=== PATIENT | female | born 1970 | race African-American/Black ===

== ENCOUNTER 2024-10-20 11:58 | Observation (INO) ==
--- NOTE | 2024-10-20 12:14 | Emergency Department Note ---
HPI - Seizure General Chief Complaint: Seizure Stated Complaint: POSSIBLE SEIZURE Time Seen by Provider: 10/20/24 12:00 Source: patient Mode of arrival: ambulance Limitations: no limitations History of Present Illness HPI Narrative: This is a 53 year old female patient that presents to the ER with c/o per EMS patient has had multiple seizures today. patient has a hx of seizures and just started Keppra 2 weeks ago. Patient is post ictal in the ER. Patient denies any chest pain, SOB, abdominal pain, numbness, tingling, weakness or N/V. Patient has a back brace on for hx of lumbar fx Associated symptoms: Reports denies other symptoms Treatments prior to arrival: Reports other (keppra 500mg) Related Data Allergies Allergy/AdvReac Type Severity Reaction Status Date / Time ondansetron (From Zofran) Allergy Verified 10/20/24 12:09 Review of Systems 2 Status of ROS 10 or more systems reviewed and unremark able except as noted in history and below Constitutional Denies: fever, chills, change in weight, fatigue, malaise or night sweats Eyes Denies: change in vision, blurry vision, blind spots, light sensitivity, eye discomfort, eye discharge or dry eyes Ears, nose, mouth, and throat Denies: throat pain, neck pain, throat swelling, difficulty swallowing, hoarseness or mouth pain Cardiovascular Denies: chest pain, palpitations, edema, swelling of feet/ankles, lightheadedness or shortness of breath with exertion Respiratory Denies: shortness of breath, cough, wheezing, stridor, pain on inspiration or change in phlegm color Gastrointestinal Denies: abdominal pain, nausea, vomiting or coffee grounds in vomit Genitourinary Denies: painful urination, urinary frequency, urinary urgency, urinary incontinence or blood in urine Musculoskeletal Denies: back pain, neck pain, extremity pain, extremity swelling or joint pain Integumentary/Breast Denies: rash, itching, redness, skin pain, skin tenderness, skin swelling or sores Neurological Reports: seizure-like activity; Denies: headache, numbness in extremities, weakness in extremities, lack of coordination, dizziness, vertigo, confusion or behavioral changes Psychiatric Denies: anxiety, mood swings, panic attacks, change in sleep pattern or hopelessness Endocrine Denies: excessive urination, excessive thirst, fatigue, cold intolerance or excessive sweating Hematologic/Lymphatic Denies: easy bruising, easy bleeding, enlarged lymph nodes or other Allergic/Immunologic Denies: hives, throat swelling, tongue swelling or facial swelling [facility] Medical History (Updated 10/20/24 @ 12:11 by Aliyah Qureshi RN) Seizure Lupus RA (rheumatoid arthritis) Social History Smoking status: never smoker Within the past year, how often did you have a drink containing alcohol: 4 or more times a week Within the past year, how many standard drinks containing alcohol did you have on a typical day: 5 or 6 Within the past year, how often did you have six or more drinks on one occasion: daily or almost daily Total score: 8 Score interpretation: A score of 3 or more indicates drinking is likely to affect patient's safety. Feel stressed/tense/nervous/anxious/difficulty sleeping: rather much Life stressors: other Life stressor details: 1 Due to disability, difficulty making decisions: No Exam Constitutional: normal general appearance, no apparent distress and average body habitus Vital Signs - 24 hr 10/20/24 11:58 Temperature 97.9 F Pulse Rate 86 Respiratory Rate 16 Blood Pressure 129/78 Pulse Oximetry 100 Oxygen Delivery Me thod Room Air HENMT: normocephalic, head/scalp atraumatic, hearing grossly normal bilaterally, external ears normal, EACs normal, nasal mucous membranes normal, external nose normal, oral mucous membranes normal and oropharynx normal Eyes: PERRL, EOMs intact bilaterally and conjunctivae normal Neck/C-Spine: visual inspection normal and trachea midline Lymph: no lymphadenopathy noted Chest: inspection of chest normal Respiratory: breath sounds equal bilaterally, normal respiratory effort, clear to auscultation bilaterally, no wheezes, no rales, no retractions, no use of accessory muscles and chest percussion normal Cardiovascular: normal heart rate noted, regular rhythm noted, no gallop, no rub, no murmur, no JVD, no clicks, peripheral pulses 2+ throughout, no bruits noted and no additional abnormal heart sounds Gastrointestinal: abdomen normal to inspection, abdomen soft to palpation, nontender to palpation, nontender to percussion, nondistended, normoactive bowel sounds, no hepatosplenomegaly, no masses, no pulsatile mass, no ascites and no hernia Genitourinary: no CVA tenderness Back/Pelvis: spine normal to inspection back brace in place Extremities: normal to inspection, normal to palpation, no tenderness, full ROM, no joint enlargement and no deformity 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: 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, no movement abnormality noted, no focal motor deficit noted, no sensory deficits noted, speech abnormality noted (slurred slightly but normal for patient hx of CVA, post ictal), coordination normal, no pronator drift noted, no fasciculations noted and GCS normal post ictal positive Psychiatry: mental status grossly normal, oriented x3, thought process normal, cooperative and affect normal Skin: skin color normal Course Course Hospital Course: 1249: spoke to Dr Fox (neurology) he reviewed labs and imaging and states to get a UA and cxr, give her Keppra 1gm IV now and then increase her Keppra to 1gm po BID. Patient states she is feeling better 1352: spoke to Dr Yuen reviewed patient with her and she accepted patient to the medical floor, patient speech normal for patient, patient states she is feeling better Vital Signs Vital signs: Vital Signs Temperature 97.9 F 10/20/24 11:58 Pulse Rate 86 10/20/24 11:58 Respiratory Rate 16 10/20/24 11:58 Blood Pressure 129/78 10/20/24 11:58 Pulse Oximetry 100 10/20/24 11:58 Oxygen Delivery Method Room Air 10/20/24 11:58 Temperature 97.9 F 10/20/24 11:58 Pulse Rate 86 10/20/24 11:58 Respiratory Rate 16 10/20/24 11:58 Blood Pressure 129/78 10/20/24 11:58 Pulse Oximetry 100 10/20/24 11:58 Oxygen Delivery Method Room Air 10/20/24 11:58 MDM - Seizure Differential Diagnosis Differential diagnosis: Likely intractable seizure disorder Medical Records Attestation: I reviewed the patient's medical records. Lab Data Attestation: I reviewed the patient's lab results. Labs: Lab Results 10/20/24 10/20/24 Range/Units 12:45 13:10 WBC 3.7 L (4.3-9.3) K/uL RBC 4.4 (4.00-5.50) M/uL Hgb 12.3 L (12.5-15.8) gm/dL Hct 37.8 (35.9-46.7) % MCV 86.9 (81.0-93.7) fl MCH 28.4 (27.6-32.2) pg MCHC 32.7 L (33.1-35.3) g/dl RDW 14.3 H (11.4-14.2) % Plt Count 208 (152-353) K/uL MPV 8.1 (6.9-10.8) fl Gran % 63.6 (47.8-71.3) % Lymph % (Auto) 23.7 (20.0-43.0) % [place] % (Auto) 10.7 H (3.6-9.8) % Eos % (Auto) 0.9 (0.4-2.8) % Baso % (Auto) 1.1 H (0.1-0.85) Lymph # (Auto) 0.9 L (1.1-3.1) [place] # (Auto) 0.4 L (1.1-3.1) Eos # (Auto) 0.0 (0.0-0.2) Baso # (Auto) 0.0 (0.0-0.1) Absolute Gran (auto) 2.3 (2.3-6.0) Sodium 139 (136-145) mmol/L Potassium 3.7 (3.6-5.2) mmol/L Chloride 103.0 (98-107) mmol/L Carbon Dioxide 26 (21-32) mmol/L Anion Gap 10.0 (4-14) mEq/L BUN 18 (7-18) mg/dL Creatinine 1.0 (0.6-1.3) mg/dL Estimated GFR 67.0 (>59.9) Glucose 133 H (70-110) mg/dL Calcium 9.1 (8.5-10.1) mg/dL Total Bilirubin 0.26 (0.0-1.0) mg/dL AST 16 (15-37) U/L ALT 37 (30-65) U/L Alkaline Phosphatase 95 (50-136) U/L Troponin I High Sens 9.50 (4.0-60.4) ng/L Total Protein 7.5 (6.4-8.2) g/dL Albumin 3.6 (3.4-5.0) g/dL Urine Color Yellow (STRAW/YELL.) Urine Appearance Clear (CLEAR) Ur Specific [place] 1.010 (1.001-1.035) Urine Protein Negative (NEGATIVE) Urine Glucose (UA) Normal (NORMAL) Urine Ketones Negative (NEGATIVE) Urine Occult Blood Negative (NEG - TRACE) Urine Nitrite Negative (NEGATIVE) Urine Bilirubin Negative (NEGATIVE) Urine Urobilinogen Normal (NORMAL) Ur Leukocyte Esterase Negative (NEGATIVE) Fluid pH 6.5 (5 - 9) Imaging Data Imaging ordered: CT scan - head Attestation: I have reviewed the pertinent imaging results. ECG Data Attestation: I have reviewed the pertinent ECG results. Discharge Plan Discharge Patient Disposition: Admitted As Observation Condition: Stable Chief Complaint: Seizure Clinical Impression: Status epilepticus Print Language: Norwegian Referrals: Radha Yuen DO [Primary Care Provider] - Time of Disposition: 13:54
[2024-10-20] MEDS ORDERED: levETIRAcetam 500 MG/5 ML VIAL ONE (12:52)
[2024-10-20] MEDS ORDERED: 0.9 % SODIUM CHLORIDE 100ML 100 ML IV ONE (12:52)
[2024-10-20 12:53] LABS: Basophils%(Percent) Auto 1.1 (0.1-0.85); Eosinophils%(Percent) Auto 0.9 % (0.4-2.8); Granulocytes % - Auto 63.6 % (47.8-71.3); Granulocytes#(Absolute)- Auto 2.3 (2.3-6.0); Hematocrit 37.8 % (35.9-46.7); Mean Corpuscular Volume 86.9 fl (81.0-93.7); Monocytes #(Absolute)- Auto 0.4 (1.1-3.1); Monocytes %(Percent)- Auto 10.7 % (3.6-9.8); Platelet Count 208 K/uL (152-353); White Blood Count 3.7 K/uL (4.3-9.3)
[2024-10-20] MEDS: LEVETIRACETAM IV ONE (12:53)
[2024-10-20] MEDS: SODIUM CHLORIDE 0.9% IV ONE (12:53)
[2024-10-20 13:02] LABS: Potassium 3.7 mmol/L (3.6-5.2)
[2024-10-20 13:22] LABS: PH BODY FLUID EXCP BLOOD 6.5 (5 - 9); Urine Appearance CLEAR (CLEAR); Urine Blood NEGATIVE (NEG - TRACE); Urine Color YELLOW (STRAW/YELL.); Urine Urobilinogen Normal (NORMAL)
[2024-10-20] MEDS ORDERED: ONDANSETRON HCL/PF 4 MG/2 ML VIAL INJ PRN (15:30)
[2024-10-20] MEDS ORDERED: DOCUSATE SODIUM 100 MG CAPSULE PO PRN (15:30)
--- NOTE | 2024-10-20 16:16 | History & Physical Report ---
H&P: HPI History of Present Illness Chief complaint: STATUS ELIPIOTICUS Narrative: This is a 53 year old female patient that presents to the ER with c/o per EMS patient has had multiple 4 seizures today. Patient has a hx of seizures and just started Keppra 2 weeks ago. Patient is post ictal in the ER, somulent and slow to talk and sats improved and heart rate decreased as well while in the ER. Patient denies any chest pain, SOB, abdominal pain, numbness, tingling, weakness or N/V. Patient has a back brace on for hx of lumbar fx and chronic pain and lupus and depression Review of Systems Status of ROS 10 or more systems reviewed and unremark able except as noted in history and below Constitutional Reports: fatigue, malaise and change in sleep pattern; Denies: fever, chills, change in weight or night sweats Eyes Denies: change in vision, blurry vision, blind spots, light sensitivity, eye discomfort, eye discharge, dry eyes or increased production of tears Ears, nose, mouth, and throat Denies: throat pain, neck pain, throat swelling, difficulty swallowing, hoarseness, mouth pain, swelling of lips/tongue, dry mouth, bad breath, ear discharge, change in hearing or vertigo Cardiovascular Denies: chest pain, palpitations, edema, swelling of feet/ankles, lightheadedness, shortness of breath with exertion, shortness of breath when lying down or leg pain with exertion Respiratory Denies: shortness of breath, cough, wheezing, stridor, pain on inspiration, change in phlegm color or coughing up blood Gastrointestinal Denies: abdominal pain, nausea, vomiting, coffee grounds in vomit, heartburn, diarrhea, constipation, bloating, belching or difficulty swallowing Genitourinary Denies: painful urination, urinary frequency, urinary urgency, urinary incontinence, blood in urine, difficulty voiding, decreased urine ouput, pelvic pain, genital itching, vaginal dryness or vaginal odor Musculoskeletal Reports: back pain, neck pain, extremity pain, extremity swelling, joint pain, limited range of motion and muscle weakness; Denies: joint swelling, muscle cramps or loss of height Integumentary/Breast Denies: rash, itching, redness, skin pain, skin tenderness , skin swelling, sores, new lesion, changing lesion, non-healing lesion, changes in skin color, jaundice, stretch lopez or breast skin changes Neurological Reports: seizure-like activity; Denies: headache, numbness in extremities, weakness in extremities, lack of coordination, dizziness, vertigo, confusion or behavioral changes Psychiatric Reports: anxiety, change in sleep pattern, loss of interest, irritability and difficulty concentrating; Denies: mood swings, panic attacks, hopelessness, paranoia, memory loss, visual hallucinations, auditory hallucinations, tactile hallucinations, suicidal ideation or homicidal ideation Endocrine Denies: excessive urination, excessive thirst, fatigue, cold intolerance, excessive sweating, flushing, heat intolerance or deepening of the voice Hematologic/Lymphatic Denies: easy bruising, easy bleeding, enlarged lymph nodes or other Allergic/Immunologic Denies: hives, throat swelling, tongue swelling, facial swelling, wheezing, itchy eyes, seasonal allergies or food intolerance [facility] Medical History (Updated 10/21/24 @ 11:52 by Radha Yuen DO) Leukopenia Chronic pain GERD with esophagitis Anemia History of alcohol abuse History of cocaine use History of marijuana use Kidney stones Cerebral vascular accident Seizure Lupus RA (rheumatoid arthritis) Social History Smoking status: never smoker Within the past year, how often did you have a drink containing alcohol: 4 or more times a week Within the past year, how many standard drinks containing alcohol did you have on a typical day: 5 or 6 Within the past year, how often did you have six or more drinks on one occasion: daily or almost daily Total score: 8 Score interpretation: A score of 3 or more indicates drinking is likely to affect patient's safety. Problems where you live: no known problems Highest level of school completed/degree received: high school Feel stressed/tense/nervous/anxious/difficulty sleeping: rather much Life stressors: other Life stressor details: 1 Due to disability, difficulty making decisions: No Meds Home Medications and Allergies Allergies Allergy/AdvReac Type Severity Reaction Status Date / Time ondansetron (From Zofran) Allergy Verified 10/20/24 12:09 Exam Constitutional: abnormal general appearance (disheveled) and (chronically i ll), no apparent distress, abnormal body habitus (overweight) and limitations noted (altered mental status) and (physical limitations) Vital Signs - 24 hr 10/20/24 11:58 10/20/24 12:30 10/20/24 13:00 Temperature 97.9 F Pulse Rate 86 86 81 Pulse Rate [Right Brachial] Respiratory Rate 16 17 20 Blood Pressure 129/78 139/85 145/90 Blood Pressure [Le ft Arm] Pulse Oximetry 100 99 97 Oxygen Delivery Me thod Room Air Room Air Room Air 10/20/24 13:30 10/20/24 14:00 10/20/24 14:30 Temperature Pulse Rate 79 78 84 Pulse Rate [Right Brachial] Respiratory Rate 20 16 16 Blood Pressure 144/84 138/80 159/91 Blood Pressure [Le ft Arm] Pulse Oximetry 98 98 98 Oxygen Delivery Me thod Room Air Room Air Room Air 10/20/24 15:00 10/20/24 15:22 10/20/24 15:30 Temperature 97.9 F 97.5 F L Pulse Rate 78 78 Pulse Rate [Right Brachial] 87 Respiratory Rate 18 18 19 Blood Pressure 142/82 142/82 Blood Pressure [Le ft Arm] 152/88 Pulse Oximetry 99 99 97 Oxygen Delivery Tn thod Room Air Room Air HENMT: normocephalic, head/scalp atraumatic, hearing grossly normal bilaterally, external ears normal, EACs normal, TMs abnormal, nasal mucous membranes normal, external nose normal, oral mucous membranes abnormal, oropharynx normal and dentition abnormal Eyes: PERRL, EOMs intact bilaterally, conjunctivae normal, no scleral icterus, papilledema noted, alignment normal and periorbital findings normal Neck/C-Spine: abnormal to visual inspection, trachea midline, cervical spine nontender, abnormal cervical ROM noted, supple, no meningeal signs, thyroid normal and no carotid bruits Lymph: no lymphadenopathy noted and no lymphedema noted Chest: inspection of chest normal, palpation of chest normal, inspection of breasts normal and palpation of breasts normal Respiratory: breath sounds unequal (diminished bilateral bases), normal respiratory effort, clear to auscultation bilaterally, no wheezes, no rales, no retractions, no use of accessory muscles and chest percussion normal Cardiovascular: normal heart rate noted, regular rhythm noted, no gallop, no rub, no murmur, no JVD, no clicks, peripheral pulses 2+ throughout, no bruits noted and no additional abnormal heart sounds Gastrointestinal: abdomen normal to inspection, abdomen soft to palpation, nontender to palpation, nontender to percussion, nondistended, normoactive bowel sounds, no hepatosplenomegaly, no masses, no pulsatile mass, no ascites and no hernia Genitourinary: no CVA tenderness, bladder normal to palpation and external appearance normal Back/Pelvis: spine abnormal to inspection, thoracic spine tenderness noted, lumbar spine tenderness noted, thoracic spine ROM abnormal, lumbar spine ROM abnormal, paraspinal muscle tenderness noted and straight leg raise abnormal back brace in place Extremities: normal to inspection, normal to palpation, no tenderness, full ROM, no joint enlargement and no deformity 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, no movement abnormality noted, no focal motor deficit noted, sensory deficit noted, deep tendon reflexes 2+ bilaterally, gait abnormality noted, speech abnormality noted (slurred slightly but normal for pat ient hx of CVA, post ictal), coordination normal, no pronator drift noted, no fasciculations noted and GCS normal post ictal positive Psychiatry: Mental Status Exam documented within this Exam's Psych section mental status abnormal (somnolent), oriented x3, thought process abnormality noted, cooperative, affect abnormality noted (labile) and psychomotor abnormality noted (slow) and (disorganized) Feel stressed/tense/nervous/anxious/difficulty sleeping: not at all Skin: skin color abnormal Reports (pale), no rash, no lesions, no ecchymosis noted, no wounds, no lacerations, skin turgor abnormal, no jaundice, no petechiae, no mottling, nails abnormality noted and alopecia noted (wig in place) Reports (general thinning) Assessment and Plan Assessment and Plan (1) Leukopenia: Qualifiers: Leukopenia type: lymphocytopenia Qualified Code(s): D72.810 - Lymphocytopenia Code(s): D72.819 - Decreased white blood cell count, unspecified (2) Postictal confusion: Code(s): F05 - Delirium due to known physiological condition (3) Seizure: Code(s): R56.9 - Unspecified convulsions (4) Lupus: (5) RA (rheumatoid arthritis): Qualifiers: Rheumatoid arthritis location: multiple sites Rheumatoid factor presence: with rheumatoid factor Qualified Code(s): M05.79 - Rheumatoid arthritis with rheumatoid factor of multiple sites without organ or systems involvement Code(s): M06.9 - Rheumatoid arthritis, unspecified (6) Anemia: Qualifiers: Anemia type: other cause Other causes of anemia: other cause, not classified Qualified Code(s): D64.89 - Other specified anemias Code(s): D64.9 - Anemia, unspecified (7) GERD with esophagitis: Qualifiers: Esophagitis bleeding: without hemorrhage Qualified Code(s): K21.00 - G natalie-esophageal reflux disease with esophagitis, without bleeding Code(s): K21.00 - Gastro-esophageal reflux disease with esophagitis, without bleeding (8) Chronic pain: Qualifiers: Chronic pain type: other chronic pain Qualified Code(s): G89.29 - Other chronic pain Code(s): G89.29 - Other chronic pain Plan 0.9% 100 ml per hour neuro checks every 2 hours and prn cardiac and oximetry monitoring anticoagulant therapy protonix therapy pain control with tylenol and morphine and patient home medications Results Labs Labs: CBC 10/20/24 Range/Units 12:45 WBC 3.7 L (4.3-9.3) K/uL RBC 4.4 (4.00-5.50) M/uL Hgb 12.3 L (12.5-15.8) gm/dL Hct 37.8 (35.9-46.7) % Plt Count 208 (152-353) K/uL Gran % 63.6 (47.8-71.3) % Lymph % (Auto) 23.7 (20.0-43.0) % [place] % (Auto) 10.7 H (3.6-9.8) % Eos % (Auto) 0.9 (0.4-2.8) % Baso % (Auto) 1.1 H (0.1-0.85) Lymph # (Auto) 0.9 L (1.1-3.1) [place] # (Auto) 0.4 L (1.1-3.1) Eos # (Auto) 0.0 (0.0-0.2) Baso # (Auto) 0.0 (0.0-0.1) Absolute Gran (auto) 2.3 (2.3-6.0) CMP 10/20/24 12:45 Sodium 139 Potassium 3.7 Chloride 103.0 Carbon Dioxide 26 BUN 18 Creatinine 1.0 Glucose 133 H Calcium 9.1 Liver Function 10/20/24 Range/Units 12:45 Total Bilirubin 0.26 (0.0-1.0) mg/dL AST 16 (15-37) U/L ALT 37 (30-65) U/L Alkaline Phosphatase 95 (50-136) U/L Albumin 3.6 (3.4-5.0) g/dL Urine 10/20/24 13:10 Urine Color Yellow Urine Appearance Clear Ur Specific [place] 1.010 Urine Protein Negative Urine Glucose (UA) Normal Pulse Oximetry Attestation: I have reviewed the pertinent pulse oximetry results. ECG Attestation: I have reviewed the pertinent ECG results. Prior ECG tracings: available for review Imaging Imaging ordered: Chest x-ray and CT scan - head Radiologist's impression: [place] [id number] CT Scan Report Signed Patient: Lexii Rg MR#: [id number] : 1970 Acct:[id number] Age/Sex: 53 / F ADM Date: 10/20/24 Loc: ED Attending Dr: Ordering Physician: Cassandra Morin Date of Service: 10/20/24 Procedure(s): CT head/brain wo con Accession Number(s): [id number] cc: Cassandra Morin; Radha Yuen,DO~ EXAMINATION: CT HEAD/BRAIN WO CON HISTORY: SEIZURE; CV/MB. COMPARISON STUDY: CT brain 08/04/2024 TECHNIQUE: Images were obtained in brain and bone windows. The above CT scan was done with automated exposure control and the mA and kV was adjusted to obtain quality images according to patient size. FINDINGS: There is motion artifact. There is no acute intracranial hemorrhage, midline shift or edema present. There is atrophy and deep white matter ischemic change due to small vessel disease. Gates-white matter differentiation is maintained throughout. There are no intra-axial or extra-axial collections noted. There are old lacunar infarcts in both basal ganglia, thalami and caudate nuclei. Area of encephalomalacia in the right parietal high convexity unchanged.. The sinuses are clear. The mastoid air cells are clear. There is no radiographic evidence of depressed skull fracture. Vascular calcification about the skull base.. IMPRESSION: No acute intracranial process. Atrophy and deep white matter ischemic change due to small vessel disease. No change compared with previous. XR CHEST 1V HISTORY: painpain; UNABLE TO REMOVE ARTIFACT (BRA) DUE TO PATIENT PAIN COMPARISON: Prior study or studies were utilized for comparison during interpretation with the most relevant dated 08/04/2024 TECHNIQUE: XR CHEST 1V FINDINGS: Chest: Lines and tubes: Cardiac leads overlie the chest. Mediastinum: Cardiac and mediastinal shadow is within normal limits for size and contour. Pulmonary vessels: No pulmonary vascular congestion. Lung villagomez: No suspicious airspace opacity. Pleura: No effusion. No pneumothorax. Bones and soft tissues: No acute osseous or soft tissue abnormality. IMPRESSION: 1. No acute cardiopulmonary abnormality
[2024-10-20 16:31] LABS: Amphetamine Screen Urine NEG. (NEGATIVE); Cannabinoid Screen Urine NEG. (NEGATIVE); Cocaine Screen Urine NEG. (NEGATIVE); Methadone Screen Urine NEG. (NEGATIVE); Opiate Screen Urine NEG. (NEGATIVE)
[2024-10-20] MEDS: ACETAMINOPHEN 500 MG TABLET PO PRN (21:01)
[2024-10-20] MEDS: KETOROLAC 30 MG/ML INJ VIAL IVP ONE (22:51)
[2024-10-21 04:04] LABS: Basophils%(Percent) Auto 1.5 (0.1-0.85); Eosinophils%(Percent) Auto 1.1 % (0.4-2.8); Granulocytes % - Auto 48.7 % (47.8-71.3); Granulocytes#(Absolute)- Auto 1.2 (2.3-6.0); Hematocrit 35.1 % (35.9-46.7); Mean Corpuscular Volume 86.4 fl (81.0-93.7); Monocytes #(Absolute)- Auto 0.3 (1.1-3.1); Monocytes %(Percent)- Auto 12.2 % (3.6-9.8); Platelet Count 202 K/uL (152-353); White Blood Count 2.4 K/uL (4.3-9.3)
[2024-10-21 04:12] LABS: Potassium 3.6 mmol/L (3.6-5.2)
[2024-10-21 07:34] VITALS: TEMP 98.4
[2024-10-21] MEDS: levETIRAcetam 500 MG TABLET PO SCH (08:59)
[2024-10-21 12:04] VITALS: BP 152/80; PULSE 80; RESP 19
--- NOTE | 2024-10-21 12:41 | Discharge Summary ---
DS: Providers Provider Date of admission: 10/20/24 13:57 Primary care physician: Radha Yuen DO Admitting clinician: Cassandra Morin Attending physician on admission: Radha Yuen Attending physician on discharge: Radha Yuen Discharging clinician: Radha Yuen Anticipated date of discharge: 10/21/24 DS: Diagnosis Discharge Diagnosis (1) Postictal confusion: (2) Leukopenia: Qualifiers: Leukopenia type: lymphocytopenia Qualified Code(s): D72.810 - Lymphocytopenia (3) Seizure: (4) Lupus: (5) RA (rheumatoid arthritis): Qualifiers: Rheumatoid arthritis location: multiple sites Rheumatoid factor presence: with rheumatoid factor Qualified Code(s): M05.79 - Rheumatoid arthritis with rheumatoid factor of multiple sites without organ or systems involvement (6) Anemia: Qualifiers: Anemia type: other cause Other causes of anemia: other cause, not classified Qualified Code(s): D64.89 - Other specified anemias (7) GERD with esophagitis: Qualifiers: Esophagitis bleeding: without hemorrhage Qualified Code(s): K21.00 - Gastro-esophageal reflux disease with esophagitis, without bleeding (8) Chronic pain: Qualifiers: Chronic pain type: other chronic pain Qualified Code(s): G89.29 - Other chronic pain DS: Summary Hospital Course Hospital Course: 1249: spoke to Dr Fox (neurology) he reviewed labs and imaging and states to get a UA and cxr, give her Keppra 1gm IV now and then increase her Keppra to 1gm po BID. Patient states she is feeling better 1352: spoke to Dr Yuen reviewed patient with her and she accepted patient to the medical floor, patient speech normal for patient, patient states she is feeling better patient did well over night WBC drop to 2.4 and patient afebrile and confusion resolved and patient can speak unlike in the ER when she could speak although i mproved prior to arrival to the floor and after 7 hours patient back to her base line with speech and mentation, mag dropped to 1.6 and patient has a history of low mag it makes her nauseous but if it will help her with the gary horse she has in her abdomen on the sides bilateral she took it with the pheneran IV per patient request discharged home with family who live with the patient Status at Discharge Functional status at discharge: uses cane/walker Overall status at discharge: patient is back to baseline Time Spent with Patient Time attestation: Total time spent providing and/or coordinating discharge services: 32 Time spent: greater than 30 minutes Exam Constitutional: normal general appearance, no apparent distress, abnormal body habitus (overweight) and limitations noted (physical limitations) Vital Signs - 24 hr 10/20/24 13:00 10/20/24 13:30 10/20/24 14:00 Temperature Pulse Rate 81 79 78 Pulse Rate [Right Brachial] Respiratory Rate 20 20 16 Blood Pressure 145/90 144/84 138/80 Blood Pressure [Le ft Arm] Pulse Oximetry 97 98 98 [facility] Room Air 10/20/24 14:30 10/20/24 15:00 10/20/24 15:22 Temperature 97.9 F Pulse Rate 84 78 78 Pulse Rate [Right Brachial] Respiratory Rate 16 18 18 Blood Pressure 159/91 142/82 142/82 Blood Pressure [Le ft Arm] Pulse Oximetry 98 99 99 [facility] Air 10/20/24 15:30 10/20/24 15:59 10/20/24 19:03 Temperature 97.5 F L 98.4 F Pulse Rate Pulse Rate [Right Brachial] 87 87 101 H Respiratory Rate 19 18 17 Blood Pressure Blood Pressure [Le ft Arm] 152/88 155/84 Pulse Oximetry 97 97 96 [facility] Room Air Room Air 10/21/24 00:00 10/21/24 03:56 10/21/24 07:33 Temperature 97.8 F 97.5 F L 98.4 F Pulse Rate Pulse Rate [Right Brachial] 75 78 78 Respiratory Rate 18 17 20 Blood Pressure Blood Pressure [Le ft Arm] 124/72 152/84 140/75 Pulse Oximetry 96 96 98 [facility] Room Air Room Air 10/21/24 12:00 Temperature 98.4 F Pulse Rate Pulse Rate [Right Brachial] 80 Respiratory Rate 19 Blood Pressure Blood Pressure [Le ft Arm] 152/80 Pulse Oximetry 99 [facility] Air HENMT: normocephalic, head/scalp atraumatic, hearing grossly normal bilaterally, external ears normal, EACs normal, TMs abnormal, nasal mucous membranes normal, external nose normal, oral mucous membranes normal, oropharynx normal and dentition abnormal Eyes: PERRL, EOMs intact bilaterally, conjunctivae normal, no scleral icterus, papilledema noted, alignment normal and periorbital findings normal Neck/C-Spine: abnormal to visual inspection, trachea midline, cervical spine nontender, abnormal cervical ROM noted, supple, no meningeal signs, thyroid normal and no carotid bruits Lymph: no lymphadenopathy noted and no lymphedema noted Chest: inspection of chest normal, palpation of chest normal, inspection of breasts normal and palpation of breasts normal Respiratory: breath sounds equal bilaterally, normal respiratory effort, clear to auscultation bilaterally, no wheezes, no rales, no retractions, no use of accessory muscles and chest percussion normal Cardiovascular: normal heart rate noted, regular rhythm noted, no gallop, no rub, no murmur, no JVD, no clicks, peripheral pulses 2+ throughout, no bruits noted and no additional abnormal heart sounds Gastrointestinal: abdomen normal to inspection, abdomen soft to palpation, nontender to palpation, nontender to percussion, nondistended, normoactive bowel sounds, no hepatosplenomegaly, no masses, no pulsatile mass, no ascites and no hernia Genitourinary: no CVA tenderness, bladder normal to palpation and external appearance normal Back/Pelvis: spine abnormal to inspection, thoracic spine tenderness noted, lumbar spine tenderness noted, thoracic spine ROM abnormal, lumbar spine ROM abnormal, paraspinal muscle tenderness noted and straight leg raise abnormal back brace in place Extremities: normal to inspection, normal to palpation, no tenderness, full ROM, no joint enlargement and no deformity Neurology: rn 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 II-XII intact, no movement abnormality noted, no focal motor deficit noted, sensory deficit noted, deep tendon reflexes 2+ bilaterally, gait abnormality noted, speech normal (slurred slightly but normal for patient hx of CVA, post ictal), coordination normal, no pronator drift noted, no fasciculations noted and GCS normal Psychiatry: Mental Status Exam documented within this Exam's Psych section mental status grossly normal, oriented x3, thought process abnormality noted, cooperative, affect normal and psychomotor activity normal Feel stressed/ten se/nervous/anxious/difficulty sleeping: not at all Skin: skin color normal, no rash, no lesions, no ecchymosis noted, no wounds, no lacerations, skin turgor normal, no jaundice, no petechiae, no mottling, nails abnormality noted and alopecia noted (wig in place) Reports (general thinning) DS: Data Data Completed and Pending Labs on day of discharge: Labs from last 24 hours 10/21/24 10/20/24 10/20/24 04:00 13:10 12:45 WBC 2.4 L 3.7 L RBC 4.1 4.4 Hgb 11.8 L 12.3 L Hct 35.1 L 37.8 MCV 86.4 86.9 MCH 29.2 28.4 MCHC 33.8 32.7 L RDW 14.2 14.3 H Plt Count 202 208 MPV 8.2 8.1 Gran % 48.7 63.6 Lymph % (Auto) 36.5 23.7 Wallace % (Auto) 12.2 H 10.7 H Eos % (Auto) 1.1 0.9 Baso % (Auto) 1.5 H 1.1 H Lymph # (Auto) 0.9 L 0.9 L Wallace # (Auto) 0.3 L 0.4 L Eos # (Auto) 0.0 0.0 Baso # (Auto) 0.0 0.0 Absolute Gran (auto) 1.2 L 2.3 Sodium 138 139 Potassium 3.6 3.7 Chloride 104.0 103.0 Carbon Dioxide 24 26 Anion Gap 10.0 10.0 BUN 26 H 18 Creatinine 1.0 1.0 Estimated GFR 67.0 67.0 Glucose 156 H 133 H Calcium 8.9 9.1 Magnesium 1.6 L Total Bilirubin 0.26 AST 16 ALT 37 Alkaline Phosphatase 95 Troponin I High Sens 9.50 Total Protein 7.5 Albumin 3.6 Urine Color Yellow Urine Appearance Clear Ur Specific Evart 1.010 Urine Protein Negative Urine Glucose (UA) Normal Urine Ketones Negative Urine Occult Blood Negative Urine Nitrite Negative Urine Bilirubin Negative Urine Urobilinogen Normal Ur Leukocyte Esterase Negative Fluid pH 6.5 Urine Opiates Screen Neg. Urine Methadone Screen Neg. Barbiturate Screen Neg. Ur Phencyclidine Scrn Neg. Amphetamines Screen Neg. U Benzodiazepines Scrn Neg. Urine Cocaine Screen Neg. U Marijuana (THC) Screen Neg. Discharge Plan Discharge Disposition: Home, Self-Care Condition: Stable Discharge Medications: Continued alendronate 70 mg tablet 70 mg PO QWEEK Patient Comments: TAKE ONE TABLET BY MOUTH ONCE WEEKLY. TAKE THE SAME DAY EACH WEEK AT LEAST 30 MINUTES BEFORE FIRST FOOD, DRINK, OR OTHER MEDS. losartan 100 mg tablet 100 mg PO DAILY Patient Comments: TAKE ONE TABLET BY MOUTH EVERY DAY aspirin 325 mg tablet 325 mg PO DAILY amlodipine 5 mg tablet 5 mg PO DAILY Patient Comments: TAKE ONE TABLET BY MOUTH EVERY DAY levetiracetam 500 mg tablet 500 mg PO Q12H Patient Comments: TAKE ONE TABLET BY MOUTH EVERY TWELVE HOURS omeprazole 40 mg capsule,delayed release(DR/EC) 40 mg PO BID Patient Comments: TAKE ONE CAPSULE BY MOUTH TWICE DAILY tizanidine 4 mg tablet 4 mg PO Q12H Patient Comments: TAKE ONE TABLET BY MOUTH EVERY TWELVE HOURS duloxetine 30 mg capsule,delayed release(DR/EC) 30 mg PO DAILY Patient Comments: TAKE ONE CAPSULE BY MOUTH EVERY DAY hydroxychloroquine 200 mg tablet 200 mg PO DAILY Patient Comments: TAKE ONE TABLET BY MOUTH EVERY DAY ferrous sulfate [FeroSul] 325 mg (65 mg iron) tablet 325 mg PO DAILY Patient Comments: TAKE ONE TABLET BY MOUTH EVERY DAY clopidogrel 75 mg tablet 75 mg PO DAILY Patient Comments: TAKE ONE TABLET BY MOUTH EVERY DAY prednisone 5 mg tablet 5 mg PO DAILY Discontinued azathioprine 50 mg tablet 50 mg PO TID diclofenac sodium 75 mg tablet,delayed release (DR/EC) 75 mg PO Q12H Patient Comments: TAKE ONE TABLET BY MOUTH TWICE DAILY pramipexole 0.125 mg tablet 0.125 mg PO BID Patient Comments: TAKE ONE TABLET BY MOUTH EVERY MORNING AND THEN TAKE 4 TABLETS BY MOUTH AT BEDTIME Discharge Orders: Discharge Order (Routine); Ordered 10/21/24 Ordered By: Radha Yuen Activity: increase activity as tolerated Diet: advance to your usual diet Activity Restrictions/Additional Instructions: avoid allergens and stress and sleep loss take medications as directed see PCP Wednesday for a repeat Kera Level increase water intake please Forms: Portal/Health Info Access Inst Follow-Ups: Radha Yuen DO [Primary Care Provider] -
[2024-10-21] MEDS: AMLODIPINE BESYLATE 5 MG TABLET PO SCH (13:21)
[2024-10-21] MEDS: TIZANIDINE HCL 4 MG TABLET PO SCH (13:22)
[2024-10-21] MEDS: ASPIRIN 325 MG TABLET PO SCH (13:22)
[2024-10-21] MEDS: HYDROXYCHLOROQUINE SULFATE 200 MG TABLET PO SCH (13:22)
[2024-10-21] MEDS: CLOPIDOGREL BISULFATE 75 MG TABLET PO SCH (13:22)
[2024-10-21] MEDS: DULOXETINE HCL 30 MG CAPSULE.DR PO SCH (13:22)
[2024-10-21] MEDS: FERROUS SULFATE 325 MG TABLET PO SCH (13:22)
[2024-10-21] MEDS: LOSARTAN POTASSIUM 50 MG TABLET PO SCH (13:22)
[2024-10-21] MEDS: predniSONE 5 MG TABLET PO SCH (13:22)
[2024-10-21] MEDS: PROMETHAZINE HCL 25 MG in 0.9 % SODIUM CHLORIDE 50 ML IV PRN (13:24)
[2024-10-21] MEDS: MAGNESIUM OXIDE 400 MG TABLET PO ONE (13:25)
[2024-10-21] MEDS ORDERED: AZATHIOPRINE 50 MG PO SCH (16:00)
== END 2024-10-21 14:29 | disposition home or self-care (01) ==
LOC: MS 11:58 → ED 11:58 → MS 15:23
PROVIDERS: ADMIT Family Medicine; ATTEND Family Medicine
DX: D64.89 Other specified anemias; Z79.1 Long term (current) use of non-steroidal anti-inflammatories (NSAID); Z79.83 Long term (current) use of bisphosphonates; M05.79 Rheumatoid arthritis with rheumatoid factor of multiple sites without organ or systems involvement; Z79.82 Long term (current) use of aspirin; D72.810 Lymphocytopenia; G93.89 Other specified disorders of brain; K21.00 Gastro-esophageal reflux disease with esophagitis, without bleeding; Z79.52 Long term (current) use of systemic steroids; G89.29 Other chronic pain; F32.A Depression, unspecified; Z79.899 Other long term (current) drug therapy; G40.901 Epilepsy, unspecified, not intractable, with status epilepticus; R41.0 Disorientation, unspecified; I67.89 Other cerebrovascular disease; E83.42 Hypomagnesemia; M32.9 Systemic lupus erythematosus, unspecified; Z88.8 Allergy status to other drugs, medicaments and biological substances; Z79.02 Long term (current) use of antithrombotics/antiplatelets

== ENCOUNTER → 2024-10-28 10:00 | Observation (INO) ==
--- NOTE | 2024-10-27 13:16 | History & Physical Report ---
H&P: HPI History of Present Illness Chief complaint: intractable back pain, lupus, left renal stones Narrative: 53 year old female here for pain control after failing outpatient therapy for pain with tizandidine and hydrocodone. Her PCP relates that she is having muscle spasms which are worsening due to fracture of T6. She is wearing a brace and the spasms are in anterior abdomen/ribs area where brace sits however brace not really applying much if any pressure. Will admit to [facility] and obtain current labs. Will start on IV pain meds. She denies fever, chills, night sweats, no headaches, dizziness, blurred vision, chest pain, cough, sob, palpitatios, n/v/d/c. Medical history positive for Leukopenia, chronic pain, GERD, Anemia, Alcohol abuse, multiple illicit drugs use, kidney stones, seizure disorder, LUpus, and RA. Review of Systems Status of ROS 10 or more systems reviewed and unremark able except as noted in history and below [facility] Medical History Leukopenia Chronic pain GERD with esophagitis Anemia History of alcohol abuse History of cocaine use History of marijuana use Kidney stones Cerebral vascular accident Seizure Lupus RA (rheumatoid arthritis) Social History Smoking status: never smoker Within the past year, how often did you have a drink containing alcohol: 4 or more times a week Within the past year, how many standard drinks containing alcohol did you have on a typical day: 5 or 6 Within the past year, how often did you have six or more drinks on one occasion: daily or almost daily Total score: 8 Score interpretation: A score of 3 or more indicates drinking is likely to affect patient's safety. Problems where you live: no known problems Highest level of school completed/degree received: high school Feel stressed/tense/nervous/anxious/difficulty sleeping: not at all Life stressors: other Life stressor details: 1 Due to disability, difficulty making decisions: No Meds Home Medications and Allergies Home Medications Medication Instructions Recorded Confirmed Type alendronate 70 mg tablet 70 mg PO QWEEK 10/21/24/12/20 History amlodipine 5 mg tablet 5 mg PO DAILY 10/21/2410/21 History aspirin 325 mg tablet 325 mg PO DAILY 10/21/24 History clopidogrel 75 mg tablet 75 mg PO DAILY 10/21/24/12/20 History duloxetine 30 mg capsule,delayed 30 mg PO DAILY 10/21/24 History release ferrous sulfate 325 mg (65 mg 325 mg PO DAILY 10/21/24 10/21/24 History iron) tablet (FeroSul) hydroxychloroquine 200 mg tablet 200 mg PO DAILY 10/2110/21/24 History levetiracetam 500 mg tablet 500 mg PO Q12H 10/21/24 History losartan 100 mg tablet 100 mg PO DAILY 10/21/24 History omeprazole 40 mg capsule,delayed 40 mg PO BID 10/21/24 10/21/24 History release prednisone 5 mg tablet 5 mg PO DAILY 10/21/2410/21 History tizanidine 4 mg tablet 4 mg PO Q12H 10/21/24 History Allergies Allergy/AdvReac Type Severity Reaction Status Date / Time ondansetron (From Zofran) Allergy Verified 10/20/24 12:09 Exam Constitutional: normal general appearance, no apparent distress, average body habitus and no limitations HENMT: normocephalic and head/scalp atraumatic Eyes: EOMs intact bilaterally and conjunctivae normal Neck/C-Spine: visual inspection normal and trachea midline Chest: inspection of chest normal Respiratory: breath sounds equal bilaterally, normal respiratory effort, clear to auscultation bilaterally, no wheezes, no rales, no retractions and no use of accessory muscles Cardiovascular: normal heart rate noted, regular rhythm noted, no gallop, no rub, no murmur and no JVD Gastrointestinal: abdomen normal to inspection, abdomen soft to palpation and normoactive bowel sounds Genitourinary: deferred Extremities: normal to inspection, normal to palpation, no tenderness and full ROM Neurology: no movement abnormality noted, speech normal and coordination normal Psychiatry: mental status grossly normal, oriented x3, thought process normal, cooperative, affect normal and memory normal Skin: skin color normal, no rash and no lesions Assessment and Plan Assessment and Plan (1) Chronic pain: Qualifiers: Chronic pain type: other chronic pain Qualified Code(s): G89.29 - Other chronic pain Code(s): G89.29 - Other chronic pain (2) RA (rheumatoid arthritis): Qualifiers: Rheumatoid arthritis location: multiple sites Rheumatoid factor presence: with rheumatoid factor Qualified Code(s): M05.79 - Rheumatoid arthritis with rheumatoid factor of multiple sites without organ or systems involvement Code(s): M06.9 - Rheumatoid arthritis, unspecified (3) Lupus: (4) Seizure: Code(s): R56.9 - Unspecified convulsions (5) Fracture of T6 vertebra: Qualifiers: Fracture morphology: unspecified fracture morphology Code(s): S22.059A - Unspecified fracture of T5-T6 vertebra, initial encounter for closed fracture Plan Admit to Observation Start on Morphine 2mg iv every 4 hours prn for pain >6/10 Continue Home medications Regular diet
[2024-10-27 14:16] LABS: Potassium 3.3 mmol/L (3.6-5.2)
[2024-10-27] MEDS: MORPHINE SULFATE 2 MG/ML CARTRIDGE IV PRN (15:00)
[2024-10-27] MEDS: PANTOPRAZOLE SODIUM 40 MG TABLET.DR PO SCH (15:23)
[2024-10-27 15:51] LABS: Basophils%(Percent) Auto 0.7 (0.1-0.85); Eosinophils%(Percent) Auto 0.9 % (0.4-2.8); Granulocytes % - Auto 55.5 % (47.8-71.3); Granulocytes#(Absolute)- Auto 1.6 (2.3-6.0); Hematocrit 38.9 % (35.9-46.7); Mean Corpuscular Volume 85.6 fl (81.0-93.7); Monocytes #(Absolute)- Auto 0.3 (1.1-3.1); Platelet Count 238 K/uL (152-353); White Blood Count 2.9 K/uL (4.3-9.3)
[2024-10-27] MEDS: ATORVASTATIN CALCIUM 40 MG TABLET PO ONE (21:05)
[2024-10-27] MEDS: levETIRAcetam 500 MG TABLET PO SCH (21:05)
[2024-10-27] MEDS: TIZANIDINE HCL 4 MG TABLET PO ONE (21:05)
[2024-10-28 04:04] VITALS: TEMP 98.3
[2024-10-28] MEDS: levETIRAcetam 500 MG TABLET PO SCH (07:11)
[2024-10-28] MEDS: TIZANIDINE HCL 4 MG TABLET PO SCH (07:11)
[2024-10-28 08:13] VITALS: BP 165/86; PULSE 83; RESP 19
[2024-10-28] MEDS: HYDROXYCHLOROQUINE SULFATE 200 MG TABLET PO SCH (08:25)
[2024-10-28] MEDS: LOSARTAN POTASSIUM 50 MG TABLET PO SCH (08:25)
[2024-10-28] MEDS: FERROUS SULFATE 325 MG TABLET PO SCH (08:26)
[2024-10-28] MEDS: AMLODIPINE BESYLATE 5 MG TABLET PO SCH (08:26)
[2024-10-28] MEDS: ASPIRIN 325 MG TABLET PO SCH (08:26)
[2024-10-28] MEDS: CLOPIDOGREL BISULFATE 75 MG TABLET PO SCH (08:26)
[2024-10-28] MEDS: DULOXETINE HCL 30 MG CAPSULE.DR PO SCH (08:26)
[2024-10-28] MEDS: predniSONE 5 MG TABLET PO SCH (08:26)
[2024-10-28] MEDS: ATORVASTATIN CALCIUM 40 MG TABLET PO SCH (08:26)
[2024-10-28] MEDS: OMEPRAZOLE 40 MG PO SCH (08:27)
--- NOTE | 2024-10-28 08:50 | Discharge Summary ---
DS: Providers Provider Date of admission: 10/27/24 11:41 Primary care physician: Radha Yuen DO Admitting clinician: Sonia Beauchamp Attending physician on admission: Sonia Beauchamp Attending physician on discharge: Sonia Beauchamp Discharging clinician: Sonia Beauchamp DS: Diagnosis Discharge Diagnosis (1) Chronic pain: Assessment and plan: pain now controlled and patient feels she will be ok to get by with PO meds until follow up on Wednesday. Qualifiers: Chronic pain type: other chronic pain Qualified Code(s): G89.29 - Other chronic pain (2) RA (rheumatoid arthritis): Qualifiers: Rheumatoid arthritis location: multiple sites Rheumatoid factor presence: with rheumatoid factor Qualified Code(s): M05.79 - Rheumatoid arthritis with rheumatoid factor of multiple sites without organ or systems involvement (3) Lupus: (4) Seizure: (5) Fracture of T6 vertebra: Qualifiers: Fracture morphology: unspecified fracture morphology Plan Dishcarge home with usual dose of Hydrocodone until her follow up on Wednesday DS: Summary Hospital Course Hospital Course: Patient pain brought under control with use of IV Morphine while hospitalized. Status at Discharge Cognitive/behavioral status at discharge: normal Overall status at discharge: patient is back to baseline Time Spent with Patient Time attestation: Total time spent providing and/or coordinating discharge services:50 Specific discharge activities: discussion of patient follow up with PCP and prescribing po pain meds until Wednesday Exam Constitutional: normal general appearance and no apparent distress Vital Signs - 24 hr 10/27/24 13:00 10/27/24 17:00 10/27/24 19:59 Temperature 98 F 97.7 F 98.3 F Pulse Rate [Brachi al] 88 107 H 75 Respiratory Rate 19 19 15 Blood Pressure [Le ft Arm] 141/84 153/72 121/79 Pulse Oximetry 99 94 L 98 Oxygen Delivery Me [facility]od Room Air Room Air Room Air 10/27/24 23:43 10/28/24 04:00 10/28/24 08:00 Temperature 98.2 F 98.3 F 98.3 F Pulse Rate [Brachi al] 85 84 83 Respiratory Rate 15 15 19 Blood Pressure [Le ft Arm] 107/70 153/79 165/86 Pulse Oximetry 99 98 95 Oxygen Delivery Me thod Room Air Room Air Room Air HENMT: normocephalic and head/scalp atraumatic Eyes: EOMs intact bilaterally and conjunctivae normal Neck/C-Spine: visual inspection normal and trachea midline Lymph: no lymphadenopathy noted and no lymphedema noted Chest: inspection of chest normal Respiratory: breath sounds equal bilaterally, normal respiratory effort, clear to auscultation bilaterally, no wheezes, no rales, no retractions and no use of accessory muscles Cardiovascular: normal heart rate noted, regular rhythm noted, no gallop, no rub, no murmur, no JVD and no bruits noted Gastrointestinal: abdomen normal to inspection, abdomen soft to palpation and normoactive bowel sounds Genitourinary: deferred Back/Pelvis: spine normal to inspection Extremities: normal to inspection and normal to palpation Neurology: no focal motor deficit noted, gait normal, speech normal and coordination normal Psychiatry: mental status grossly normal, oriented x3, thought process normal, cooperative, affect normal and memory normal Skin: skin color normal, no rash and no lesions DS: Data Data Completed and Pending Labs on day of discharge: Labs from last 24 hours 10/27/24 13:50 WBC 2.9 L RBC 4.5 Hgb 12.8 Hct 38.9 MCV 85.6 MCH 28.1 MCHC 32.9 L RDW 14.0 Plt Count 238 MPV 8.7 Gran % 55.5 Lymph % (Auto) 30.9 Banner % (Auto) 12.0 H Eos % (Auto) 0.9 Baso % (Auto) 0.7 Lymph # (Auto) 0.9 L Banner # (Auto) 0.3 L Eos # (Auto) 0.0 Baso # (Auto) 0.0 Absolute Gran (auto) 1.6 L Sodium 140 Potassium 3.3 L Chloride 104.0 Carbon Dioxide 25 Anion Gap 11.0 BUN 18 Creatinine 0.9 Estimated GFR 76.0 Glucose 101 Calcium 9.4 Magnesium 1.5 L Total Bilirubin 0.30 AST 19 ALT 28 L Alkaline Phosphatase 89 Total Protein 7.7 Albumin 3.9 Discharge Plan Discharge Disposition: Home, Self-Care Condition: Improved Discharge Medications: Continued atorvastatin 40 mg tablet 40 mg PO DAILY Patient Comments: TAKE ONE TABLET BY MOUTH AT BEDTIME diclofenac sodium 75 mg tablet,delayed release (DR/EC) 75 mg PO Q12H Patient Comments: TAKE ONE TABLET BY MOUTH TWICE DAILY hydrocodone-acetaminophen 7.5-325 mg tablet 1 tab PO Q12H PRN (Reason: pain) Patient Comments: TAKE ONE TABLET BY MOUTH EVERY TWELVE HOURS NEEDED pramipexole 0.5 mg tablet 0.5 mg PO BEDTIME Patient Comments: TAKE ONE TABLET BY MOUTH EVERY EVENING alendronate 70 mg tablet 70 mg PO QWEEK Patient Comments: TAKE ONE TABLET BY MOUTH ONCE WEEKLY. TAKE THE SAME DAY EACH WEEK AT LEAST 30 MINUTES BEFORE FIRST FOOD, DRINK, OR OTHER MEDS. losartan 100 mg tablet 100 mg PO DAILY Patient Comments: TAKE ONE TABLET BY MOUTH EVERY DAY aspirin 325 mg tablet 325 mg PO DAILY amlodipine 5 mg tablet 5 mg PO DAILY Patient Comments: TAKE ONE TABLET BY MOUTH EVERY DAY levetiracetam 500 mg tablet 500 mg PO Q12H Patient Comments: TAKE ONE TABLET BY MOUTH EVERY TWELVE HOURS omeprazole 40 mg capsule,delayed release(DR/EC) 40 mg PO BID Patient Comments: TAKE ONE CAPSULE BY MOUTH TWICE DAILY tizanidine 4 mg tablet 4 mg PO Q12H Patient Comments: TAKE ONE TABLET BY MOUTH EVERY TWELVE HOURS duloxetine 30 mg capsule,delayed release(DR/EC) 30 mg PO DAILY Patient Comments: TAKE ONE CAPSULE BY MOUTH EVERY DAY hydroxychloroquine 200 mg tablet 200 mg PO DAILY Patient Comments: TAKE ONE TABLET BY MOUTH EVERY DAY ferrous sulfate [FeroSul] 325 mg (65 mg iron) tablet 325 mg PO DAILY Patient Comments: TAKE ONE TABLET BY MOUTH EVERY DAY clopidogrel 75 mg tablet 75 mg PO DAILY Patient Comments: TAKE ONE TABLET BY MOUTH EVERY DAY prednisone 5 mg tablet 5 mg PO DAILY Discharge Orders: Discharge Order (Routine); Ordered 10/28/24 Ordered By: Sonia Beauchamp Interventions: MED/SURG & ICU Observation Charge Sheet Last Done: 10/28/24 08:55 Plan of Treatment: Patient will follow up with PCP on Wednesday as scheduled Patient Instructions: Deprescribing Opioids and Benzodiazepines (DC) Activity Restrictions/Additional Instructions: Rest as needed, activity as tolerated. Forms: Portal/Health Info Access Inst Follow-Ups: Radha Yuen DO [Primary Care Provider, Medical] Referral Note: follow up as scheduled on Wednesday. Problems: Chronic pain; Fracture of T6 vertebra
[2024-10-28] MEDS: DICLOFENAC SODIUM 75 MG TABLET.DR PO SCH (08:53)
[2024-10-28] MEDS: ALENDRONATE 70 MG PO SCH (08:53)
[~2024-10-28 10:00] MED LIST: ALENDRONATE 70 MG PO SCH; HYDROCODONE/ACETAMINOPHEN 7.5/325MG TABLET PO PRN; PRAMIPEXOLE 0.5 MG PO SCH
== END | disposition home or self-care (01) ==
LOC: MS
PROVIDERS: ADMIT Family Medicine; ATTEND Nurse Practitioner Family